=== PATIENT | female | born 1955 | race Caucasian/White ===

== ENCOUNTER 2016-08-26 17:35 | Emergency (ER) | payer MEDICAID ==
--- NOTE | 2016-08-26 17:31 | EDPHY ---
Medical Decision Making ED Course/Re-evaluation: CHIEF COMPLAINT: HISTORY OF PRESENT ILLNESS: must have 4 elements: Location, Quality, Severity , Duration, Timing, Context, Modifying Factors, Associated Signs and Symptoms REVIEW OF SYSTEMS: A 10 point review of systems was performed and is negative with the exception of the elements mentioned in the history of present illness. PHYSICAL EXAM: HR, BP, O2 Sat, RR. Temp noted General Appearance: Alert, well hydrated, appropriate, and non-toxic appearing. Head: Atraumatic without scalp tenderness or obvious injury Eyes: Pupils equal, round, reactive to light and accommodation, EOMI, no trauma , no injection. Ears: Clear bilaterally, no perforation, normal landmarks Nose: Atraumatic, no rhinorrhea, clear. Throat: There is no erythema or exudates, no lesions, normal tonsils, mucus membranes moist. Neck: Supple, 2+ carotid upstroke, nontender, no lymphadenopathy. Respiratory: No retractions, no distress, no wheezes, and no accessory muscle use. Lungs are clear to auscultation bilaterally. Cardiovascular: Regular rate and rhythm, no murmurs, rubs, or gallops. Bilateral carotid, radial, dorsalis pedis, and posterior tibial pulses intact. Good capillary refill all extremities. Gastrointestinal: Abdomen is soft, nontender, non-distended, no masses, no rebound, no guarding, no peritoneal signs. Musculoskeletal: Normal active ROM of all extremities, atraumatic. Neurological: Alert, appropriate, and interactive. The patient has normal DTRs and non-focal cranial nerves, motor, sensory, and cerebellar exam. Skin: No rashes, good turgor, no nodules on palpation. Past medical history: Past surgical history: Family history: Social history: DIAGNOSTICS/PROCEDURES/CRITICAL CARE TIME: DIFFERENTIAL DIAGNOSIS: MEDICAL DECISION MAKING:
[2016-08-26 17:43] VITALS: BP 145/75; PULSE 69; RESP 20; TEMP 97.5; O2SAT 94
--- NOTE | 2016-08-26 18:14 | EDPHY ---
ED Progress Note Narrative: I walked in to see this patient upon her arrival. She stated that she no longer had any abdominal pain and did not want to be seen. She asked someone to take the IV out and she is leaving. I did not perform any history or physical exam. Clinical impression: Left without being seen
== END 2016-08-26 18:20 | disposition left against medical advice (07) ==
LOC: EDUNIT#
DX: Z53.21 Procedure and treatment not carried out due to patient leaving prior to being seen by health care provider (principal)

== ENCOUNTER 2016-08-26 19:29 | Emergency (ER) | payer MEDICAID ==
[2016-08-26 19:38] VITALS: TEMP 97.9
--- NOTE | 2016-08-26 20:11 | EDPHY ---
H & P Time Seen by Provider: 08/26/16 19:50 HPI/ROS: CHIEF COMPLAINT: "IBS pain" HISTORY OF PRESENT ILLNESS: Patient is a 61-year-old female with a history of IBS. She has intermittent episodes. Her last visit to the emergency department was in January 2016. She states she has been "doing well while at home." When she has episodes at home she normally takes hyoscyamine and Zofran and "toughs it out." Today she developed her typical IBS pain. She describes it as diffuse as a line drawn underneath her umbilicus. It is crampy in nature. It does not radiate. She has had multiple episodes of nausea and vomiting. No dysuria or frequency. She called EMS and came to the emergency department. However after waiting for approximately 35 minutes, Dr. Bello went and see the patient. When he wanted to room she stated she did not want to be seen. She removed her IV and was discharged from the emergency department. She states that her symptoms had felt better. When she returned home she developed her symptoms again. She called EMS and was brought back to the emergency department. She denies fevers or chills. No dysuria or frequency. REVIEW OF SYSTEMS: My complete review of systems is negative except as mentioned in the HPI. Past Medical/Surgical History: Includes IBS Past surgical history: Negative Social history: The patient does not use alcohol or smoke. Smoking Status: Former smoker Physical Exam: Vitals noted GENERAL: No acute distress, alert. HEENT: Eyes normal to inspection, normal pharynx, no signs of dehydration. NECK: No thyromegaly, no lymphadenopathy, supple. RESPIRATORY: Clear to auscultation bilaterally, no rales, rhonchi or wheezing. CVS: Regular rate and rhythm, no rubs, murmurs, or gallops. ABDOMEN: Soft, nondistended, no organomegaly. No focal tenderness palpation. No rebound or guarding. BACK: Normal to inspection, no CVA tenderness. SKIN: Normal color, no rash, warm, dry. No pallor. EXTREMITIES: No pedal edema, no joint swelling. NEURO/PSYCH: [Alert and oriented, normal mood and affect. Constitutional: Initial Vital Signs Temperature (C) 36.6 C 08/26/16 19:29 Heart Rate 73 08/26/16 19:29 Respiratory Rate 20 08/26/16 19:29 Blood Pressure 146/75 H 08/26/16 19:29 O2 Sat (%) 100 08/26/16 19:29 O2 Delivery Mode Room Air Allergies/Adverse Reactions: acetaminophen [From Vicodin] Allergy (Verified 08/26/16 19:33) ciprofloxacin [From Cipro] Allergy (Verified 08/26/16 19:33) ciprofloxacin HCl [From Cipro] Allergy (Verified 08/26/16 19:33) hydrocodone bitartrate [From Vicodin] Allergy (Verified 08/26/16 19:33) morphine Allergy (Verified 08/26/16 19:33) Home Medications: Medication Instructions Recorded HYOSCYAMINE SULFATE 02/24/10 Zofran 08/26/16 Medical Decision Making ED Course/Re-evaluation: In the emergency department I met the patient on arrival. I discussed plan with the patient. IV was placed. Patient was given normal saline 1 L IV for hydration. She is given morphine 4 mg IV and Zofran 4 mg IV for pain and nausea. I rechecked the patient. Her abdominal pain had resolved. She was soft nontender nondistended on repeat exam. [place] [address]. Her CBC and chemistry are otherwise unremarkable. I discussed laboratory results with the patient. I answered her questions. She is given warnings prior to leaving. She will return with worsening symptoms. Differential Diagnosis: My differential includes but is not limited to IBS, hyperemesis, small-bowel obstruction, perforation, appendicitis, ovarian cyst, ovarian torsion, , urinary tract infection - Data Points Laboratory Results: Laboratory Results 08/26/16 19:45 08/26/16 19:45 08/26/16 08/26/16 08/26/16 19:45 19:45 19:45 WBC 14.40 10^3/uL H 10^3/uL (3.80-9.50) RBC 4.89 10^6/uL 10^6/uL (4.18-5.33) Hgb 14.7 g/dL g/dL (12.6-16.3) Hct 43.6 % % (38.0-47.0) MCV 89.2 fL fL (81.5-99.8) MCH 30.1 pg pg (27.9-34.1) MCHC 33.7 g/dL g/dL (32.4-36.7) RDW 12.9 % % (11.5-15.2) Plt Count 288 10^3/uL 10^3/uL (150-400) MPV 10.5 fL fL (8.7-11.7) Neut % (Auto) 70.9 % % (39.3-74.2) Lymph % (Auto) 22.4 % % (15.0-45.0) [place] % (Auto) 4.4 % L % (4.5-13.0) Eos % (Auto) 0.8 % % (0.6-7.6) Baso % (Auto) 1.0 % % (0.3-1.7) Nucleat RBC Rel Count 0.0 % % (0.0-0.2) Absolute Neuts (auto) 10.20 10^3/uL H 10^3/uL (1.70-6.50) Absolute Lymphs (auto) 3.22 10^3/uL H 10^3/uL (1.00-3.00) Absolute Monos (auto) 0.64 10^3/uL 10^3/uL (0.30-0.80) Absolute Eos (auto) 0.12 10^3/uL 10^3/uL (0.03-0.40) Absolute Basos (auto) 0.15 10^3/uL H 10^3/uL (0.02-0.10) Absolute Nucleated RBC 0.00 10^3/uL 10^3/uL (0-0.01) Immature Gran % 0.5 % % (0.0-1.1) Immature Gran # 0.07 10^3/uL 10^3/uL (0.00-0.10) Sodium 143 mEq/L mEq/L (134-144) Potassium 4.2 mEq/L mEq/L (3.5-5.2) Chloride 104 mEq/L mEq/L (97-110) Carbon Dioxide 26 mEq/l mEq/l (22-31) Anion Gap 13 mEq/L mEq/L (8-16) BUN 16 mg/dL mg/dL (7-23) Creatinine 0.7 mg/dL mg/dL (0.6-1.0) Estimated GFR > 60 Glucose 104 mg/dL H mg/dL (70-100) Calcium 10.2 mg/dL mg/dL (8.5-10.4) Total Bilirubin 0.5 mg/dL mg/dL (0.1-1.4) Conjugated Bilirubin 0.4 mg/dL mg/dL (0.0-0.5) Unconjugated Bilirubin 0.1 mg/dL mg/dL (0.0-1.1) AST 25 IU/L IU/L (14-46) ALT 35 IU/L IU/L (9-52) Alkaline Phosphatase 95 IU/L IU/L (38-126) Total Protein 8.2 g/dL g/dL (6.3-8.2) Albumin 4.7 g/dL g/dL (3.5-5.0) Lipase 160.0 IU/L IU/L (23-300) Beta HCG, Qual NEGATIVE Medications Given: Discontinued Medications Hydromorphone HCl (Dilaudid) 0.5 mg IVP EDNOW ONE Stop: 08/26/16 20:14 Last Admin: 08/26/16 20:28 Dose: 0.5 mg Sodium Chloride (Ns) 1,000 mls @ 0 mls/hr IV ONCE ONE PRN Reason: Wide Open Stop: 08/26/16 20:13 Last Admin: 08/26/16 20:27 Dose: 1,000 mls Ondansetron HCl (Zofran) 4 mg IVP EDNOW ONE Stop: 08/26/16 20:13 Last Admin: 08/26/16 20:28 Dose: 4 mg Departure - Departure Disposition: Home, Routine, Self-Care Clinical Impression: Irritable bowel syndrome Qualifiers: Irritable bowel syndrome type: without diarrhea Qualified Code(s): K58.9 - Irritable bowel syndrome without diarrhea Abdominal pain Qualifiers: Abdominal location: lower abdomen, unspecified Qualified Code(s): R10.30 - Lower abdominal pain, unspecified Condition: Good Instructions: Abdominal Pain (ED) Additional Instructions: Return with increasing pain, nausea, vomiting or any other concerns. Referrals: [facility] [Other] - As per Instructions
[2016-08-26] MEDS ORDERED: NS 1,000 ML IV ONE (20:12)
[2016-08-26] MEDS ORDERED: ONDANSETRON 4 MG/2 ML VIAL IVP ONE (20:12)
[2016-08-26] MEDS ORDERED: HYDROmorphONE/DILAUDID 1 MG/ML SYR IVP ONE (20:13)
[2016-08-26 20:27] LABS: % IMMATURE GRANULYOCYTES 0.5 % (0.0-1.1); ABSOLUTE IMMATURE GRANULOCYTES 0.07 10^3/uL (0.00-0.10); ADD DIFF? NO; ADD MORPH? NO; ADD SCAN? NO; ATYPICAL LYMPHOCYTE FLAG 10 (0-99); FRAGMENT RBC FLAG 0 (0-99); HEMATOCRIT 43.6 % (38.0-47.0); HEMOGLOBIN 14.7 g/dL (12.6-16.3); LEFT SHIFT FLG 0 (0-99); LIPEMIA HEMOLYSIS FLAG 80 (0-99); MEAN CELL HEMOGLOBIN 30.1 pg (27.9-34.1); MEAN CELL HEMOGLOBIN CONCENTR. 33.7 g/dL (32.4-36.7); MEAN CELL VOLUME 89.2 fL (81.5-99.8); MEAN PLATELET VOLUME 10.5 fL (8.7-11.7); PLATELET CLUMPS FLAG 0 (0-99); PLATELET COUNT 288 10^3/uL (150-400); RED BLOOD CELL COUNT 4.89 10^6/uL (4.18-5.33); RED CELL DISTRIBUTION WIDTH 12.9 % (11.5-15.2)
[2016-08-26 20:35] LABS: ALANINE AMINOTRANSFERASE 35 IU/L (9-52); ALBUMIN 4.7 g/dL (3.5-5.0); ALKALINE PHOSPHATASE 95 IU/L (38-126); ANION GAP 13 mEq/L (8-16); ASPARTATE AMINOTRANSFERASE 25 IU/L (14-46); BILIRUBIN,TOTAL 0.5 mg/dL (0.1-1.4); BILIRUBIN-CONJUGATED 0.4 mg/dL (0.0-0.5); BILIRUBIN-UNCONJUGATED 0.1 mg/dL (0.0-1.1); CALCIUM 10.2 mg/dL (8.5-10.4); CARBON DIOXIDE 26 mEq/l (22-31); CHLORIDE 104 mEq/L (97-110); CREATININE 0.7 mg/dL (0.6-1.0); GLOMERULAR FILTRATION RATE > 60; GLUCOSE 104 mg/dL (70-100); POTASSIUM 4.2 mEq/L (3.5-5.2); SODIUM 143 mEq/L (134-144); TOTAL PROTEIN 8.2 g/dL (6.3-8.2)
[2016-08-26 21:38] VITALS: RESP 16; O2SAT 94
[2016-08-26 21:47] VITALS: BP 116/63; PULSE 76
== END 2016-08-26 21:46 | disposition home or self-care (01) ==
LOC: EDUNIT#
DX: K58.9 Irritable bowel syndrome, unspecified (principal); Z87.891 Personal history of nicotine dependence
CPT/HCPCS: 96374; J1170; J2405

== ENCOUNTER 2016-09-28 12:41 | Emergency (ER) | payer MEDICAID ==
[2016-09-28 12:52] VITALS: BP 159/73; TEMP 98.4
[2016-09-28 12:53] LABS: % IMMATURE GRANULYOCYTES 0.4 % (0.0-1.1); ABSOLUTE IMMATURE GRANULOCYTES 0.03 10^3/uL (0.00-0.10); ADD DIFF? NO; ADD MORPH? NO; ADD SCAN? NO; ATYPICAL LYMPHOCYTE FLAG 10 (0-99); FRAGMENT RBC FLAG 0 (0-99); HEMATOCRIT 45.9 % (38.0-47.0); HEMOGLOBIN 15.3 g/dL (12.6-16.3); LEFT SHIFT FLG 0 (0-99); LIPEMIA HEMOLYSIS FLAG 80 (0-99); MEAN CELL HEMOGLOBIN 29.8 pg (27.9-34.1); MEAN CELL HEMOGLOBIN CONCENTR. 33.3 g/dL (32.4-36.7); MEAN CELL VOLUME 89.5 fL (81.5-99.8); MEAN PLATELET VOLUME 10.3 fL (8.7-11.7); PLATELET CLUMPS FLAG 0 (0-99); PLATELET COUNT 292 10^3/uL (150-400); RED BLOOD CELL COUNT 5.13 10^6/uL (4.18-5.33); RED CELL DISTRIBUTION WIDTH 12.7 % (11.5-15.2)
[2016-09-28] MEDS ORDERED: LORazepam 2 MG/ML INJ IVP ONE (12:56)
[2016-09-28] MEDS ORDERED: NS 1,000 ML IV ONE (12:56)
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
[2016-09-28 13:11] LABS: ALANINE AMINOTRANSFERASE 34 IU/L (9-52); ALBUMIN 4.8 g/dL (3.5-5.0); ALKALINE PHOSPHATASE 90 IU/L (38-126); ANION GAP 13 mEq/L (8-16); ASPARTATE AMINOTRANSFERASE 26 IU/L (14-46); BILIRUBIN,TOTAL 0.5 mg/dL (0.1-1.4); BILIRUBIN-CONJUGATED 0.4 mg/dL (0.0-0.5); BILIRUBIN-UNCONJUGATED 0.1 mg/dL (0.0-1.1); CALCIUM 10.4 mg/dL (8.5-10.4); CARBON DIOXIDE 25 mEq/l (22-31); CHLORIDE 102 mEq/L (97-110); CREATININE 0.7 mg/dL (0.6-1.0); GLOMERULAR FILTRATION RATE > 60; GLUCOSE 107 mg/dL (70-100); POTASSIUM 4.9 mEq/L (3.5-5.2); SODIUM 140 mEq/L (134-144); TOTAL PROTEIN 8.7 g/dL (6.3-8.2)
[2016-09-28 14:39] VITALS: PULSE 85; RESP 16; O2SAT 95
== END 2016-09-28 14:38 | disposition home or self-care (01) ==
LOC: EDUNIT#
DX: K58.0 Irritable bowel syndrome with diarrhea (principal); Z87.891 Personal history of nicotine dependence; R10.84 Generalized abdominal pain
CPT/HCPCS: 96374; J2060

== ENCOUNTER 2016-09-28 16:57 | Emergency (ER) | payer MEDICAID ==
[2016-09-28 17:08] VITALS: PULSE 75; RESP 18
[2016-09-28] MEDS ORDERED: LORazepam 2 MG/ML INJ IVP ONE (17:20)
[2016-09-28] MEDS ORDERED: NS 1,000 ML IV ONE (17:21)
--- NOTE | 2016-09-28 18:29 | EDPHY ---
H & P Stated Complaint: IBS flare up Time Seen by Provider: 09/28/16 16:59 HPI/ROS: Chief complaint: Abdominal pain History of present illness: This is a 61-year-old female who presents to the emergency department for evaluation of abdominal pain. Patient was seen earlier today in the emergency room for similar. Patient reports a history of irritable bowel syndrome. She feels like she is having a flare of it. She describes diffuse pain. She states she has been under significant stress recently and this will often times trigger her IBS. She denies other potential precipitating factors. She denies alleviating factors. She denies other associated signs or symptoms including no fevers, no nausea, vomiting or diarrhea, no urinary symptoms. This is a typical flare. EMS has provided her with IV fentanyl. Review of systems: A 10 point review of systems was obtained and other than described above was negative - Personal History Tetanus Vaccine Date: 2013 - Medical/Surgical History Hx Asthma: No Hx Chronic Respiratory Disease: No Hx Diabetes: No Hx Cardiac Disease: No Hx Renal Disease: No Hx Cirrhosis: No Hx Alcoholism: No Hx HIV/AIDS: No Hx Splenectomy or Spleen Trauma: No Other PMH: IBS - sees Dr. Pacheco at [facility]. - Social History Smoking Status: Former smoker - Physical Exam Exam: General Appearance: Alert, nontoxic. Eyes: Pupils equal and round no pallor or injection. ENT, Mouth: Mucous membranes moist. Respiratory: There are no retractions, lungs are clear to auscultation. Cardiovascular: Regular rate and rhythm. Gastrointestinal: Bowel sounds are normal. Abdomen soft, nondistended, nontender. Neurological: Alert and oriented x4. Strength and sensation intact and symmetrical. Skin: Warm and dry, no rashes. Musculoskeletal: Neck is supple non tender. Extremities are symmetrical, full range of motion. Psychiatric: Patient is oriented X 3, there is no agitation. Constitutional: Initial Vital Signs Temperature (C) 36.5 C 09/28/16 16:57 Heart Rate 75 09/28/16 16:57 Respiratory Rate 18 09/28/16 16:57 Blood Pressure 125/70 H 09/28/16 16:57 O2 Sat (%) 95 09/28/16 16:57 O2 Delivery Mode Room Air Allergies/Adverse Reactions: acetaminophen [From Vicodin] Allergy (Verified 09/28/16 12:51) ciprofloxacin [From Cipro] Allergy (Verified 09/28/16 12:51) ciprofloxacin HCl [From Cipro] Allergy (Verified 09/28/16 12:51) hydrocodone bitartrate [From Vicodin] Allergy (Verified 09/28/16 12:51) morphine Allergy (Verified 09/28/16 12:51) Home Medications: Medication Instructions Recorded HYOSCYAMINE SULFATE 02/24/10 Zofran 08/26/16 Medical Decision Making ED Course/Re-evaluation: Patient seen under the supervision of my secondary supervising physician Dr. Timoteo Russell. Patient presents to the emergency department for the 2nd time today for abdominal pain. She reports this is consistent with an IBS flare. Patient is nontoxic. Afebrile and vital signs are stable. Physical exam is unremarkable including a benign abdominal exam. Blood studies from earlier today are reviewed and unremarkable. She is IV hydrated and given Ativan. She reports resolution of symptoms. She would like to be discharged home. She is discharged home with a prepack of Ativan. Home care is discussed. She is asked to follow up with her primary care doctor or GI doctor for continued evaluation and care. Strict return precautions are given. Patient voiced understanding and agreement with plan. Differential Diagnosis: Included but not limited to IBS, gastritis, gastroenteritis, biliary tract disease, pancreatitis, colitis - Data Points Medications Given: Discontinued Medications Sodium Chloride (Ns) 1,000 mls @ 0 mls/hr IV ONCE ONE PRN Reason: Wide Open Stop: 09/28/16 17:22 Last Admin: 09/28/16 17:30 Dose: 1,000 mls Lorazepam (Ativan Injection) 1 mg IVP EDNOW ONE Stop: 09/28/16 17:21 Last Admin: 09/28/16 17:50 Dose: 1 mg Departure - Departure Disposition: Home, Routine, Self-Care Clinical Impression: Abdominal pain Qualifiers: Abdominal location: generalized Qualified Code(s): R10.84 - Generalized abdominal pain Condition: Good Instructions: Lorazepam (By mouth), Abdominal Pain (ED) Additional Instructions: Follow-up with your primary care doctor on Saturday or Saturday for recheck If symptoms worsen or new symptoms develop return to the emergency room for recheck Referrals: [facility] [Other] - As per Instructions
[2016-09-28] MEDS ORDERED: LORAZEPAM 1 MG PREPACK#4 BTL TAKEHOME ONE (18:49)
[2016-09-28 19:15] VITALS: BP 125/78; TEMP 98.4; O2SAT 98
== END 2016-09-28 19:13 | disposition home or self-care (01) ==
LOC: EDUNIT#
DX: R10.84 Generalized abdominal pain (principal); Z87.891 Personal history of nicotine dependence
CPT/HCPCS: 96374; J2060

== ENCOUNTER → 2017-03-05 | Outpatient (CLI) | payer MEDICAID | LOC: FCPNEURO 21:00 | PROVIDERS: ATTEND Psychiatry & Neurology Sleep Medicine | DX: G47.33 Obstructive sleep apnea (adult) (pediatric) (principal) ==

== ENCOUNTER 2018-01-27 | Emergency (ER) | payer MEDICAID | END 2018-01-27 21:29 | disposition left against medical advice (07) | DX: Z53.21 Procedure and treatment not carried out due to patient leaving prior to being seen by health care provider (principal) ==

== ENCOUNTER 2018-01-30 23:07 | Emergency (ER) | payer MEDICAID ==
[2018-01-31] MEDS ORDERED: LORazepam 2 MG/ML INJ IVP ONE (00:12)
[2018-01-31] MEDS ORDERED: NS 1,000 ML IV ONE (00:12)
--- NOTE | 2018-01-31 00:30 | EDPHY ---
H & P Time Seen by Provider: 01/30/18 23:59 HPI/ROS: CHIEF COMPLAINT: Abdominal pain HISTORY OF PRESENT ILLNESS: 62-year-old female presents to the emergency department by ambulance with abdominal pain. The patient has a history of irritable bowel syndrome and states that she has a flare up of irritable bowel syndrome. She states that the pain is in her left lower quadrant which is common for these flare-ups, however she does not have the normal vomiting and diarrhea the goes along with it. She does however feel dehydrated. She states that she was in the emergency department 3 days ago but did not wait and left without being seen. She states that she has had 2 flare-ups of pain within 1 week which is very unusual for her. She states "I want she did figure out what' s wrong with me". She has a cook morning that she see. She has had colonoscopy but states "it was too traumatic and I will not do that again". No fevers or chills. No chest pain or difficulty breathing. No urinary symptoms. REVIEW OF SYSTEMS: Constitutional: No fever, no chills. Eyes: No double or blurry vision. ENT: No sore throat. Respiratory: No cough, no shortness of breath. Cardiac: No chest pain. Gastrointestinal: Abdominal pain as above. No vomiting or diarrhea Genitourinary: No dysuria. Musculoskeletal: No neck or back pain. Skin: No rashes. Neurological: No headache. Past Medical/Surgical History: Chronic abdominal pain, irritable bowel syndrome Social History: Single and lives alone in [place] Smoking Status: Former smoker Physical Exam: General Appearance: Alert, no distress. Afebrile. Eyes: Pupils equal and round. Extraocular motions are all intact. ENT: Mouth: Mucous membranes moist. Respiratory: No wheezing, rhonchi, or rales, lungs are clear to auscultation. Cardiovascular: Regular rate and rhythm. Gastrointestinal: Abdomen is soft. Tenderness with palpation in her left lower quadrant. There is no masses, rebound or guarding noted. No CVA tenderness bilaterally. Neurological: Alert and oriented x 3, cranial nerves II through XII grossly intact Skin: Warm and dry, no rashes. Musculoskeletal: Nontender to palpate along the cervical, thoracic or lumbar spine. Neck is supple. Extremities: Full range of motion and no peripheral edema. Psychiatric: Patient is oriented X 3, there is no agitation. Constitutional: Initial Vital Signs Temperature (C) 36.8 C 01/30/18 23:08 Heart Rate 70 01/30/18 23:08 Respiratory Rate 16 01/30/18 23:08 Blood Pressure 157/81 H 01/30/18 23:08 O2 Sat (%) 99 01/30/18 23:08 O2 Delivery Mode Room Air Allergies/Adverse Reactions: acetaminophen [From Vicodin] Allergy (Verified 01/30/18 23:09) ciprofloxacin [From Cipro] Allergy (Verified 01/30/18 23:09) ciprofloxacin HCl [From Cipro] Allergy (Verified 01/30/18 23:09) hydrocodone bitartrate [From Vicodin] Allergy (Verified 01/30/18 23:09) morphine Allergy (Verified 01/30/18 23:09) Home Medications: Medication Instructions Recorded HYOSCYAMINE SULFATE 02/24/10 Zofran 08/26/16 Medical Decision Making ED Course/Re-evaluation: 62-year-old female presents to the emergency department with history of chronic abdominal pain from irritable bowel syndrome. She had an IV established and laboratory studies are pending. She was given 1 mg of IV Ativan which she received from her previous visit September 2016 which resolved her pain. She also received IV normal saline. The patient is resting a darkened room. She seems very displeased with the care she has received and is very irritated that she had to wait to be seen. Laboratory studies were all within normal limits. Urinalysis reveals no signs of infection or blood. Patient was reexamined multiple times. At 1:30 a.m. The patient is feeling much better. Her pain is resolved. She is drinking water. She is comfortable being discharged home. She will be discharged with a take-home pack of Ativan to use as needed and encouraged to have close follow-up with primary care provider as well as her cook morning. Differential Diagnosis: Including but not limited to chronic abdominal pain, ureteral bowel syndrome, colitis, diverticulitis, urinary tract infection, pyelonephritis, kidney stone, acute appendicitis, bowel obstruction - Data Points Laboratory Results: Laboratory Results 01/31/18 00:05 01/31/18 00:05 01/31/18 01/31/18 01/31/18 01:00 00:05 00:05 WBC 12.40 10^3/uL H 10^3/uL (3.80-9.50) RBC 5.00 10^6/uL 10^6/uL (4.18-5.33) Hgb 15.1 g/dL g/dL (12.6-16.3) Hct 44.4 % % (38.0-47.0) MCV 88.8 fL fL (81.5-99.8) MCH 30.2 pg pg (27.9-34.1) MCHC 34.0 g/dL g/dL (32.4-36.7) RDW 13.2 % % (11.5-15.2) Plt Count 323 10^3/uL 10^3/uL (150-400) MPV 10.7 fL fL (8.7-11.7) Neut % (Auto) Pending Lymph % (Auto) Pending Ogle % (Auto) Pending Eos % (Auto) Pending Baso % (Auto) Pending Nucleat RBC Rel Count Pending Absolute Neuts (auto) Pending Absolute Lymphs (auto) Pending Absolute Monos (auto) Pending Absolute Eos (auto) Pending Absolute Basos (auto) Pending Absolute Nucleated RBC Pending Immature Gran % Pending Immature Gran # Pending Platelet Estimate Pending Sodium 140 mEq/L mEq/L (135-145) Potassium 4.2 mEq/L mEq/L (3.3-5.0) Chloride 104 mEq/L mEq/L (97-110) Carbon Dioxide 24 mEq/l mEq/l (22-31) Anion Gap 12 mEq/L mEq/L (8-16) BUN 10 mg/dL mg/dL (7-23) Creatinine 0.7 mg/dL mg/dL (0.6-1.0) Estimated GFR > 60 Glucose 113 mg/dL H mg/dL (70-100) Calcium 9.9 mg/dL mg/dL (8.5-10.4) Urine Color YELLOW Urine Appearance CLEAR Urine pH 7.0 (5.0-7.5) Ur Specific [place] 1.003 (1.002-1.030) Urine Protein NEGATIVE (NEGATIVE) Urine Ketones NEGATIVE (NEGATIVE) Urine Blood NEGATIVE (NEGATIVE) Urine Nitrate NEGATIVE (NEGATIVE) Urine Bilirubin NEGATIVE (NEGATIVE) Urine Urobilinogen NEGATIVE EU EU (0.2-1.0) Ur Leukocyte Esterase TRACE H (NEGATIVE) Urine RBC 1-3 /hpf /hpf (0-3) Urine WBC 1-3 /hpf /hpf (0-3) Ur Epithelial Cells TRACE /lpf /lpf (NONE-1+) Urine Mucus TRACE /lpf /lpf (NONE-1+) Urine Glucose NEGATIVE (NEGATIVE) Medications Given: Discontinued Medications Sodium Chloride (Ns) 1,000 mls @ 0 mls/hr IV ONCE ONE PRN Reason: Wide Open Stop: 01/31/18 00:13 Last Admin: 01/31/18 00:17 Dose: 1,000 mls Ketorolac Tromethamine (Toradol) 15 mg IVP EDNOW ONE Stop: 01/31/18 00:51 Last Admin: 01/31/18 01:03 Dose: 15 mg Lorazepam (Ativan Injection) 1 mg IVP EDNOW ONE Stop: 01/31/18 00:13 Last Admin: 01/31/18 00:17 Dose: 1 mg Departure - Departure Disposition: Home, Routine, Self-Care Clinical Impression: Abdominal pain Qualifiers: Abdominal location: left lower quadrant Qualified Code(s): R10.32 - Left lower quadrant pain Condition: Good Instructions: Acute Abdominal Pain (ED) Additional Instructions: Ativan to use as needed for recurring symptoms of abdominal pain. Return to the emergency department if he developed recurring abdominal pain, vomiting, fever, or if you feel worse in any way. Follow up with your primary care provider as well as cook morning. Referrals: Ayesha Negrete PA [Primary Care Provider] - As per Instructions Rigo Pacheco MD [Medical Doctor] - As per Instructions ()
[2018-01-31 00:48] LABS: PLATELET COUNT 323 10^3/uL (150-400)
[2018-01-31] MEDS ORDERED: KETOROLAC 15 MG/1 ML SDV IVP ONE (00:50)
[2018-01-31 01:01] VITALS: BP 147/87
[2018-01-31] MEDS ORDERED: LORAZEPAM 1 MG PREPACK#4 BTL TAKEHOME ONE (01:31)
== END 2018-01-31 01:56 | disposition home or self-care (01) ==
LOC: EDUNIT#
DX: R10.32 Left lower quadrant pain (principal); Z87.891 Personal history of nicotine dependence
CPT/HCPCS: 96374; J1885; J2060

== ENCOUNTER 2018-05-26 12:01 | Emergency (ER) | payer MEDICAID ==
[2018-05-26 12:13] VITALS: BP 201/188
[2018-05-26] MEDS ORDERED: NS 1,000 ML IV ONE (12:13)
--- NOTE | 2018-05-26 12:18 | EDPHY ---
H & P Stated Complaint: N/V/D abdominal pain Time Seen by Provider: 05/26/18 12:13 HPI/ROS: HPI: This is a 63-year-old female who presents with Chief Complaint: Abdominal pain Location: Abdomen Quality: Pain Duration: This morning Signs and Symptoms: no fever, no nausea, no vomiting, no hematemesis, no blood in stool, no abdominal bloating, no diarrhea, no back pain, no urinary symptoms , no vaginal bleeding/discharge, no indigestion, no chest pain, no shortness of breath Timing: Acute on chronic Severity: 03/19 Context: Patient arrives via EMS, after she called them to transfer her to the store to get CBD oil that she had run out of. Patient reports that she has acute on chronic abdominal pain that is generalized in nature accompanied by nausea. In the back of the ambulance patient was sticking her finger down her throat to induce vomiting. She vomited 1 time in the back of the ambulance. Sees Dr. Pacheco at [facility]. History was very limited due to patient being uncooperative. Modifying Factors: Comment: ROS: A comprehensive 10 system review of systems is otherwise negative aside from elements mentioned in the history of present illness. MEDICAL/SURGICAL/SOCIAL HISTORY: Medical history: Irritable bowel syndrome Surgical history: Denies Social history: Former smoker. Family history noncontributory. CONSTITUTIONAL: Very irate and irritable elderly white female, wearing a nightgown, awake and alert, no obvious distress HEENT: Atraumatic and normocephalic, PERRL, EOMI. Nares patent; no rhinorrhea; no nasal mucosal edema. Tympanic membranes clear. Oropharynx clear, no exudate and moist pink mucosa. Airway patent. No lymphadenopathy. No meningismus. Cardiovascular: Normal S1/S2, regular rate, regular rhythm, without murmur rub or gallop. PULMONARY/CHEST: Symmetrical and nontender. Clear to auscultation bilaterally. Good air movement. No accessory muscle usage. ABDOMEN: Soft, nondistended, moderate generalized tenderness, no rebound, no guarding, no peritoneal signs, no masses or organomegaly. No CVAT. EXTREMITIES: 2/2 pulses, strength 5/5, no deformities, no clubbing, no cyanosis or edema. NEUROLOGICAL: no focal neuro deficits. GCS 15. SKIN: Warm and dry, no erythema. no rash. Good capillary refill. Source: Patient, RN/MD, EMS, Old records Exam Limitations: No limitations - Personal History Current Tetanus/Diphtheria Vaccine: Yes Current Tetanus Diphtheria and Acellular Pertussis (TDAP): Yes Tetanus Vaccine Date: 2013 - Medical/Surgical History Hx Asthma: No Hx Chronic Respiratory Disease: No Hx Diabetes: No Hx Cardiac Disease: No Hx Renal Disease: No Hx Cirrhosis: No Hx Alcoholism: No Hx HIV/AIDS: No Hx Splenectomy or Spleen Trauma: No Other PMH: IBS - sees Dr. Pacheco at [facility]. - Social History Smoking Status: Former smoker Constitutional: Initial Vital Signs Temperature (C) 36.8 C 05/26/18 12:01 Heart Rate 90 05/26/18 12:01 Respiratory Rate 18 05/26/18 12:01 Blood Pressure 201/188 H 05/26/18 12:01 O2 Sat (%) 100 05/26/18 12:01 O2 Delivery Mode Room Air Allergies/Adverse Reactions: acetaminophen [From Vicodin] Allergy (Verified 05/26/18 12:11) ciprofloxacin [From Cipro] Allergy (Verified 05/26/18 12:11) ciprofloxacin HCl [From Cipro] Allergy (Verified 05/26/18 12:11) hydrocodone bitartrate [From Vicodin] Allergy (Verified 05/26/18 12:11) morphine Allergy (Verified 05/26/18 12:11) Home Medications: Medication Instructions Recorded HYOSCYAMINE SULFATE 02/24/10 Zofran 08/26/16 Medical Decision Making ED Course/Re-evaluation: Vital signs reviewed and show elevated blood pressure. IV access and laboratory studies ordered 1220: Went into room to examine patient and she is demanding to leave and have the IV removed. 1225: Patient completed AMA paperwork after long discussion with me regarding the risks, benefits and alternatives. Patient reports that she does not want to stay at this facility in longer. Patient refused repeat vital signs at discharge. This patient was seen under the supervision of my secondary supervising physician. I evaluated care for this patient independently. Discussed this patient with Dr. Echevarria who did not see the patient. Differential Diagnosis: Abdominal pain including but not limited to appendicitis, cholecystitis, gastritis and urinary tract infection. Departure - Departure Disposition: Against Medical Advice Clinical Impression: Chronic abdominal pain Condition: Good Instructions: Chronic Abdominal Pain (ED) Additional Instructions: Consume a minimum of 8-10 glasses of water or electrolyte fluid replacement drinks that include Gatorade, Powerade, Pedialyte. Eat a bland diet for the next 48 hours and then slowly advance as tolerated. Please follow-up with [facility]. Return to the Emergency Room if symptoms do not resolve in the next 48-72 hours , you spike a fever > 102 F, or experience intractable abdominal pain/nausea/ vomiting. By leaving against medical advise you have verbalized complete understanding and acceptance of the risks associated with doing so, including, but not limited to, , chronic & permanent disability and impairment, and other circumstances and consequences too numerous to mention herein Referrals: Patient,NotPresent [Primary Care Provider] - As per Instructions Rigo Pacheco MD [Medical Doctor] - As per Instructions
[2018-05-26 12:33] LABS: PLATELET COUNT 309 10^3/uL (150-400)
== END 2018-05-26 12:22 | disposition left against medical advice (07) ==
LOC: EDUNIT#
DX: R10.9 Unspecified abdominal pain (principal)

== ENCOUNTER 2018-05-26 14:26 | Emergency (ER) | payer MEDICAID ==
--- NOTE | 2018-05-26 14:57 | EDPHY ---
H & P Stated Complaint: Abd Pain Source: Patient, RN/MD, Old records Exam Limitations: No limitations - Personal History Current Tetanus Diphtheria and Acellular Pertussis (TDAP): Yes Tetanus Vaccine Date: 2013 - Medical/Surgical History Hx Asthma: No Hx Chronic Respiratory Disease: No Hx Diabetes: No Hx Cardiac Disease: No Hx Renal Disease: No Hx Cirrhosis: No Hx Alcoholism: No Hx HIV/AIDS: No Hx Splenectomy or Spleen Trauma: No Other PMH: IBS - sees Dr. Pacheco at [facility]. - Social History Smoking Status: Former smoker Time Seen by Provider: 05/26/18 14:52 HPI/ROS: HPI: This is a 63-year-old female who presents with Chief Complaint: Abdominal pain Location: GI Quality: Abdominal pain, nausea, vomiting Duration: Today Signs and Symptoms: no fever, + nausea, + vomiting, no hematemesis, no blood in stool, no abdominal bloating, no diarrhea, no back pain, no urinary symptoms, no vaginal bleeding/discharge, no indigestion, no chest pain, no shortness of breath Timing: Acute on chronic Severity: 10 out 10 Context: Patient has a history of irritable bowel syndrome, chronic abdominal pain, followed by Dr. Winchester at [facility] presents for the 2nd time to the emergency room with complaints of generalized abdominal pain. She is sticking her finger down her throat in the emergency room to induce vomiting. Patient through her emesis basin on the floor. She keeps yelling at the nurse. Patient defecated on herself and through her emesis basin on the floor. She reports that she has not seen Gastroenterology in over 6 months. She uses CBD oral in the morning and this usually controls her symptoms. Modifying Factors: None Comment: ROS: A comprehensive 10 system review of systems is otherwise negative aside from elements mentioned in the history of present illness. MEDICAL/SURGICAL/SOCIAL HISTORY: Medical history: IBS - sees Dr. Pacheco at [facility]. Surgical history: Denies Social history: Former smoker. Family history noncontributory. CONSTITUTIONAL: Disheveled, labile, elderly white female, awake and alert, no obvious distress HEENT: Atraumatic and normocephalic, PERRL, EOMI. Nares patent; no rhinorrhea; no nasal mucosal edema. Tympanic membranes clear. Oropharynx clear, no exudate and moist pink mucosa. Airway patent. No lymphadenopathy. No meningismus. Cardiovascular: Normal S1/S2, regular rate, regular rhythm, without murmur rub or gallop. PULMONARY/CHEST: Symmetrical and nontender. Clear to auscultation bilaterally. Good air movement. No accessory muscle usage. ABDOMEN: Soft, nondistended, generalized abdominal reproducible pain, no rebound, no guarding, no peritoneal signs, no masses or organomegaly. No CVAT. EXTREMITIES: 2/2 pulses, strength 5/5, no deformities, no clubbing, no cyanosis or edema. NEUROLOGICAL: no focal neuro deficits. GCS 15. SKIN: Warm and dry, no erythema. no rash. Good capillary refill. (Jen Burnham) Constitutional: Initial Vital Signs Temperature (C) 36.5 C 05/26/18 14:32 Heart Rate 61 05/26/18 14:32 Respiratory Rate 18 05/26/18 14:32 Blood Pressure 161/92 H 05/26/18 14:32 O2 Sat (%) 100 05/26/18 14:32 O2 Delivery Mode Room Air Allergies/Adverse Reactions: acetaminophen [From Vicodin] Allergy (Verified 05/26/18 12:11) ciprofloxacin [From Cipro] Allergy (Verified 05/26/18 12:11) ciprofloxacin HCl [From Cipro] Allergy (Verified 05/26/18 12:11) hydrocodone bitartrate [From Vicodin] Allergy (Verified 05/26/18 12:11) morphine Allergy (Verified 05/26/18 12:11) Home Medications: Medication Instructions Recorded HYOSCYAMINE SULFATE 02/24/10 Zofran 08/26/16 Ondansetron Odt [Zofran Odt 4 mg 4 mg PO Q4 PRN #12 tab 05/26/18 (*)] Medical Decision Making ED Course/Re-evaluation: Vital signs reviewed and blood pressure is much improved from the last time she was in the emergency room. After 1 hr of redirection, patient now calm and cooperative. IM Haldol 5 mg given Abdomen is essentially soft and nontender. Doubt surgical process or need for imaging. 1638: Notified by RN that patient is sleeping soundly. 1647: Reassessed patient who is sleeping soundly and once I woke her up she complained of abdominal pain. I advised her that we will not give her opiate medications for chronic abdominal pain and that she needs to follow up with Gastroenterology. 1700: Patient was given a hospital gown and discharged to the waiting room to wait for her cab. This patient was seen under the supervision of my secondary supervising physician. I evaluated care for this patient independently. Discussed this patient with Dr. Khan who did not see the patient. (Jen Burnham) I did not see this patient while she was in the emergency department. However her care was discussed with the PA while the patient was in the department. I agree with treatment plan and management (Esequiel Khan) Differential Diagnosis: Abdominal pain including but not limited to appendicitis, cholecystitis, gastritis and urinary tract infection. (Jen Burnham) - Data Points Medications Given: Discontinued Medications Haloperidol Lactate (Haldol Injection) 5 mg IM EDNOW ONE Stop: 05/26/18 15:42 Last Admin: 05/26/18 15:46 Dose: 5 mg Lorazepam (Ativan Injection) 2 mg IM ONCE ONE Stop: 05/26/18 16:18 Last Admin: 05/26/18 16:57 Dose: Not Given Ondansetron HCl (Zofran Odt) 4 mg PO EDNOW ONE Stop: 05/26/18 16:07 Last Admin: 05/26/18 16:07 Dose: 4 mg Departure - Departure Disposition: Home, Routine, Self-Care Clinical Impression: Abdominal pain, chronic, generalized Condition: Good Instructions: Chronic Abdominal Pain (ED) Additional Instructions: Consume a minimum of 8-10 glasses of water or electrolyte fluid replacement drinks that include Gatorade, Powerade, Pedialyte. Eat a bland diet for the next 48 hours and then slowly advance as tolerated. Take Zofran 1 tab every 4 hours as needed for nausea, vomiting. Return to the Emergency Room if symptoms do not resolve in the next 48-72 hours , you spike a fever > 102 F, or experience intractable abdominal pain/nausea/ vomiting. Referrals: Rigo Pacheco MD [Medical Doctor] - As per Instructions Prescriptions: Ondansetron Odt [Zofran Odt 4 mg (*)] 4 mg PO Q4 PRN #12 tab PRN Reason: Nausea/Vomiting, Use 1st
[2018-05-26] MEDS ORDERED: HALOPERIDOL LACT 5 MG/ML INJ IM ONE (15:41)
[2018-05-26] MEDS ORDERED: ONDANSETRON DISINTEGRATING 4 MG TAB PO ONE (16:06)
[2018-05-26] MEDS ORDERED: ONDANSETRON DISINTEGRATING 4 MG TAB ONE (16:07)
[2018-05-26] MEDS ORDERED: LORazepam 2 MG/ML INJ IM ONE (16:17)
[2018-05-26 16:59] VITALS: BP 142/77
== END 2018-05-26 16:59 | disposition home or self-care (01) ==
LOC: EDUNIT#
DX: R10.84 Generalized abdominal pain (principal); R11.2 Nausea with vomiting, unspecified
CPT/HCPCS: J1630; J2060